=== PATIENT | female | born 1950 | race African-American/Black ===

== ENCOUNTER 2019-10-22 03:59 | Emergency (ER) | payer OTHER ==
[~2019-10-22] VITALS: Ht 162.6 cm; Wt 46.7 kg
[2019-10-22] MEDS ORDERED: REMERON30 MG PO (04:11)
[2019-10-22] MEDS ORDERED: NITROGLYCERIN0.3 M1 SUBLING (04:11)
[2019-10-22] MEDS ORDERED: APLENZIN348 MG PO (04:11)
[2019-10-22] MEDS ORDERED: CARDIZEM SR 60M60 MG PO (04:12)
[2019-10-22] MEDS ORDERED: XARELTO10 M1 PO (04:12)
[2019-10-22] MEDS ORDERED: SPIRIVA INH (04:13)
[2019-10-22 05:01] LABS: BASOPHILS 0.4 % (0.0-2.0); EOSINOPHILS 0.1 % (0.0-3.0); HEMATOCRIT 46.6 % (37.0-47.0); HEMOGLOBIN 15.6 gm/dL (12.0-15.0); LYMPHOCYTES 17.4 % (24.0-44.0); MCH 35.2 pg (26.0-34.0); MCHC 33.5 g/dL (28.0-37.0); MCV 105.2 fL (80.0-100.0); PLATELET COUNT 180 thou/uL (150-400); POLYS 79.1 % (36.0-66.0); RBC 4.43 mil/uL (4.20-5.00); RDW 13.7 % (10.5-14.5)
[2019-10-22 05:12] LABS: CALCIUM 8.8 mg/dL (8.5-10.1); CREATININE 1.3 mg/dL (0.6-1.0); POTASSIUM 3.6 mmol/L (3.5-5.1)
[2019-10-22 05:14] LABS: APTT 24.9 Seconds (24.5-32.8); INR 1.2; PROTIME 12.7 Seconds (9.3-11.4)
[2019-10-22 05:19] LABS: ALBUMIN 3.4 g/dL (3.4-5.0); TOTAL BILIRUBIN 0.5 mg/dL (0.2-1.0); TOTAL PROTEIN 7.1 g/dL (6.4-8.2)
[2019-10-22 06:33] LABS: URINE BLOOD NEGATIVE (Negative); URINE CLARITY CLEAR; URINE COLOR YELLOW; URINE GLUCOSE-RANDOM* 3+ (Negative); URINE KETONES 2+ (Negative); URINE LEUKOCYTES-REFLEX NEGATIVE (Negative); URINE NITRITE-REFLEX NEGATIVE (Negative); URINE PROTEIN (DIPSTICK) NEGATIVE (Negative); URINE SPECIFIC GRAVITY 1.015 (1.005-1.035)
[2019-10-22 06:39] LABS: ICTOTEST (BILI CONFIRMATORY) Negative (Negative); URINE BILIRUBIN NEGATIVE (Negative)
--- NOTE | 2019-10-22 08:36 | EKG ---
[facility] [place] [address] ELECTROCARDIOGRAM REPORT Name: LAURITA HEDRICK Room #: [facility]..#: [id number] Admission: 10/22/19 Attend Phys: Discharge: Date of : 46 Report #: [id number] THIS REPORT FOR: cc: [facility] - Clinic physician unknown [facility] - Clinic physician unknown Kiko Llanos MD [facility] ~ THIS REPORT FOR: //name// [facility] ED Test Date: 2019-10-22 Test Time: 05:37:19 Pat Name: LAURITA HEDRICK Department: Room: Gender: F Professor Of Visual Arts: [facility] : 1950 Requested By: Imer Quezada Order Number: [id number] MD: Kiko Llanos Measurements Intervals [place] Rate: 64 P: 69 WY: 188 QRS: 72 QRSD: 104 T: 76 QT: 488 QTc: 504 Interpretive Statements Sinus rhythm ST segment abnormality Prolonged QT interval Baseline wander multiple leads No previous ECG available for comparison Electronically Signed On 10-22-2019 8:36:33 CDT by Kiko Llanos [email or web address] <ELECTRONICALLY SIGNED> By: Kiko Llanos MD, [facility] 10/22/1938 6 Kiko Llanos MD, [facility] /EPI
[2019-10-22 09:09] VITALS: BP 133/75
== END 2019-10-22 09:09 | disposition home or self-care (01) ==
LOC: ER 03:59
PROVIDERS: Emergency Medicine
DX: E16.2 Hypoglycemia, unspecified (principal); Z79.899 Other long term (current) drug therapy

== ENCOUNTER 2020-02-11 17:09 | Inpatient (IN) | payer OTHER ==
[~2020-02-11] VITALS: Ht 152.4 cm; Wt 45.9 kg
[~2020-02-11 17:09] MED LIST: APLENZIN348 MG PO; CARDIZEM SR 60M60 MG PO; NITROGLYCERIN0.3 M1 SUBLING; REMERON30 MG PO; SPIRIVA INH; XARELTO10 M1 PO
[2020-02-11 17:10] VITALS: BP 144/59
[2020-02-11 18:16] LABS: ABSOLUTE NEUTROPHILS 4.4 thou/uL (1.4-8.2); BASOPHILS 0.3 % (0.0-2.0); EOSINOPHILS 0.1 % (0.0-3.0); HEMATOCRIT 45.6 % (37.0-47.0); HEMOGLOBIN 15.4 gm/dL (12.0-15.0); LYMPHOCYTES 9.7 % (24.0-44.0); MCHC 33.7 g/dL (28.0-37.0); MCV 106.8 fL (80.0-100.0); MONOCYTES 3.3 % (1.0-8.0); PLATELET COUNT 228 thou/uL (150-400); POLYS 86.6 % (36.0-66.0); RBC 4.27 mil/uL (4.20-5.00); RDW 15.3 % (10.5-14.5)
[2020-02-11 18:29] LABS: CALCIUM 9.6 mg/dL (8.5-10.1); POTASSIUM 3.4 mmol/L (3.5-5.1)
[2020-02-11 18:32] LABS: APTT 25.1 Seconds (24.5-32.8); PROTIME 10.7 Seconds (9.3-11.4)
[2020-02-11 18:35] LABS: ALBUMIN 3.6 g/dL (3.4-5.0); DIRECT BILIRUBIN 0.2 mg/dL (<0.1-0.2); TOTAL BILIRUBIN 0.4 mg/dL (0.2-1.0)
[2020-02-11 19:25] LABS: URINE BILIRUBIN NEGATIVE (Negative); URINE BLOOD NEGATIVE (Negative); URINE CLARITY CLEAR; URINE COLOR YELLOW; URINE GLUCOSE-RANDOM* 2+ (Negative); URINE KETONES 1+ (Negative); URINE NITRITE-REFLEX NEGATIVE (Negative); URINE PROTEIN (DIPSTICK) NEGATIVE (Negative); URINE SPECIFIC GRAVITY 1.025 (1.005-1.035)
[2020-02-11 19:27] LABS: URINE LEUKOCYTES-REFLEX 1+ (Negative)
[2020-02-11 19:36] LABS: CASTS None Seen /LPF (None Seen); CRYSTALS None Seen /LPF (None Seen); SQUAMOUS 4-10 Moderate /LPF (0-3)
[2020-02-11 19:38] LABS: BACTERIA-REFLEX 1-9 Few /HPF (None Seen); URINE RBC None Seen /HPF (0-2); URINE WBC-REFLEX 0-5 Rare /HPF (0-5)
[2020-02-11 21:09] VITALS: BP 135/54
[2020-02-11 21:17] VITALS: BP 135/68
[2020-02-11 21:33] VITALS: BP 146/65
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
[2020-02-12] MEDS ORDERED: IRON325 M1 PO (01:51)
[2020-02-12 05:15] VITALS: BP 138/65
[2020-02-12 08:00] VITALS: BP 141/71
[2020-02-12 11:19] VITALS: BP 126/70
[2020-02-12 16:39] VITALS: BP 118/71
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
[2020-02-12 19:38] VITALS: BP 151/72
--- NOTE | 2020-02-13 03:05 | NUR ---
ASSUMED PATIENT CARE AT 1845. VITAL SIGNS STABLE WITH PATIENT HAVING NO COMPLAINTS OF PAIN OR NAUSEA. FULLY ORIENTED, PATIENT IS ABLE TO CALL APPROPRIATELY FOR NEEDS. BREATHING STABLE ON ROOM AIR EVIDENCED BY ASSESSMENTS AND SPOT SATURATION CHECKS. BLOOD SUGARS STABLE. UP MULTIPLE TIMES TO THE BATHROOM WITH ASSISTANCE INCIDENT FREE. CONTINUE PLAN OF CARE.
[2020-02-13 04:06] LABS: GLYCOHEMOGLOBIN (HGB A1C) 4.7 % (4.8-5.6)
[2020-02-13 04:34] VITALS: BP 156/78
[2020-02-13 05:43] LABS: HEMATOCRIT 42.8 % (37.0-47.0); HEMOGLOBIN 14.1 gm/dL (12.0-15.0); MCH 35.3 pg (26.0-34.0); MCHC 32.9 g/dL (28.0-37.0); MCV 107.3 fL (80.0-100.0); RBC 3.99 mil/uL (4.20-5.00); RDW 14.8 % (10.5-14.5); WBC 4.8 thou/uL (4.0-11.0)
[2020-02-13 06:25] LABS: CALCIUM 8.8 mg/dL (8.5-10.1); CREATININE 0.8 mg/dL (0.6-1.0); POTASSIUM 3.8 mmol/L (3.5-5.1)
[2020-02-13 07:26] VITALS: BP 159/78
[2020-02-13 08:20] VITALS: BP 159/78
[2020-02-13] MEDS ORDERED: VITAMIN B-1100 M2 PO (08:52)
[2020-02-13] MEDS ORDERED: A THRU Z SELEC1 EAC3 PO (08:52)
[2020-02-13] MEDS ORDERED: KEFLEX500 M1 PO (08:53)
[2020-02-13 10:50] VITALS: BP 159/78
[2020-02-13 11:08] VITALS: BP 141/87
--- NOTE | 2020-02-13 12:46 | NUR ---
PT READY TO GO HOME, DC INSTRUCTIONS REVIEWED, PT VERBALIZED UNDERSTANDING, TELE AND IV REMOVED, PT'S SON TO COME PICK HER UP, SHE SAID SHE WILL [employer] HER SCRIPTS FROM [facility] WELL SEE HER MD NEXT WEEK.
== END 2020-02-13 13:10 | disposition home or self-care (01) | DRG 896 ==
LOC: ER 17:09 → EROBS 20:10 → 2N 20:10
PROVIDERS: Emergency Medicine; Hospitalist; Nurse Practitioner Family; ADMIT Internal Medicine; ATTEND Internal Medicine
DX: F10.229 Alcohol dependence with intoxication, unspecified (principal); E43 Unspecified severe protein-calorie malnutrition; N39.0 Urinary tract infection, site not specified; Z68.1 Body mass index [BMI] 19.9 or less, adult; E16.2 Hypoglycemia, unspecified; J44.9 Chronic obstructive pulmonary disease, unspecified; I10 Essential (primary) hypertension; F17.210 Nicotine dependence, cigarettes, uncomplicated; R74.01 Elevation of levels of liver transaminase levels; Z79.899 Other long term (current) drug therapy; Z86.718 Personal history of other venous thrombosis and embolism
CPT/HCPCS: 10081